=== PATIENT | female | born 1990 | race Caucasian/White ===

== ENCOUNTER 2020-12-10 13:00 | Outpatient (CLI) | payer MEDICAID, SELFPAY ==
[2020-12-10 13:13] VITALS: PULSE 88; O2SAT 100
[2020-12-10 13:17] VITALS: BP 132/92; PULSE 99
[2020-12-10 13:18] VITALS: PULSE 87; O2SAT 98
[2020-12-10 13:27] VITALS: RESP 15; TEMP 36.7; BMI 36.1
[2020-12-10 13:34] VITALS: BP 133/83; PULSE 94
== END 2020-12-10 13:42 | disposition home or self-care (01) ==
LOC: OPOB 13:02 → OBGYN 13:07
PROVIDERS: PCP Family Medicine; Visit Provider Family Medicine
DX: O24.419 Gestational diabetes mellitus in pregnancy, unspecified control (principal); Z3A.00 Weeks of gestation of pregnancy not specified
CPT/HCPCS: 59025

== ENCOUNTER 2020-12-13 15:57 | Outpatient (CLI) | payer MEDICAID, SELFPAY ==
[2020-12-13 16:26] VITALS: BP 125/62; PULSE 106; TEMP 36.6
[2020-12-13 16:41] VITALS: BP 119/77; PULSE 90
[2020-12-13 16:43] VITALS: RESP 16
[2020-12-13 16:49] VITALS: BMI 36.9
[2020-12-13 16:54] VITALS: BP 119/77; PULSE 90; RESP 16; TEMP 36.6
== END 2020-12-13 20:46 | disposition home or self-care (01) ==
LOC: OPOB 16:00 → OBGYN 16:02
PROVIDERS: PCP Family Medicine; Visit Provider Family Medicine
DX: O24.419 Gestational diabetes mellitus in pregnancy, unspecified control (principal); Z3A.00 Weeks of gestation of pregnancy not specified
CPT/HCPCS: 59025

== ENCOUNTER 2020-12-17 14:50 | Outpatient (CLI) | payer MEDICAID, SELFPAY ==
[2020-12-17 15:00] VITALS: RESP 20
[2020-12-17 15:04] VITALS: BP 124/78; PULSE 85; TEMP 36.6
[2020-12-17 15:14] VITALS: BMI 36.8
[2020-12-17 15:19] VITALS: BP 129/86; PULSE 90
[2020-12-17 15:35] VITALS: BP 129/82; PULSE 92
[2020-12-17 15:50] VITALS: BP 129/88; PULSE 96
== END 2020-12-17 16:00 | disposition home or self-care (01) ==
LOC: OPOB 14:55 → OBGYN 14:58
PROVIDERS: PCP Family Medicine; Visit Provider Family Medicine
DX: O24.419 Gestational diabetes mellitus in pregnancy, unspecified control (principal); Z3A.00 Weeks of gestation of pregnancy not specified
CPT/HCPCS: 59025; 99211

== ENCOUNTER 2020-12-19 07:20 | Inpatient (IN) | payer BC, MEDICAID, SELFPAY ==
[2020-12-19] VITALS (88 sets, daily range): BP systolic 104–144; BP diastolic 57–87; PULSE 63–125; RESP 16–18; TEMP 36.1–36.7; O2SAT 91–100; BMI 36.9
[2020-12-19] MEDS: ampicillin 2,000 MG in sodium chloride 0.9% (plus) 50 ML 100 MG IV (08:03)
[2020-12-19] MEDS: dextrose 5%-lactated ringers 1,000 ML 125 ML IV ×2 (08:03→17:44)
[2020-12-19] MEDS: oxytocin 30 UNIT/500 ML BAG IV (08:15)
[2020-12-19 08:46] LABS: Basophils % 0.3 %; Eosinophils # 0.2 10^3/uL (0.0-0.8); Eosinophils % 1.7 %; Hematocrit 34.3 % (37.0-47.0); Lymphocytes # 1.6 10^3/uL (0.8-4.8); Lymphocytes % 17.9 %; Mean Corpuscular HGB Conc 32.1 g/dL (30.0-36.0); Mean Corpuscular Hemoglobin 27.2 pg (28.0-34.0); Mean Corpuscular Volume 84.7 fL (81-99); Mean Platelet Volume 12.5 fL (7.4-10.4); Monocytes # 0.5 10^3/uL (0.2-0.9); Monocytes % 5.9 %; Neutrophils # 6.36 10^3/uL (1.8-7.7); Neutrophils % 73.1 %; Nucleated Red Blood Cells % 0 %; Platelet Count 168 10^3/cmm (130-400); Red Blood Count 4.05 10^6/uL (4.1-5.3); Red Cell Distribution Width 15.9 % (12.1-15.1); White Blood Count 8.7 10^3/uL (4.0-10.0)
[2020-12-19 09:11] LABS: Glucose Point of Care 131 mg/dL (70-110)
[2020-12-19] MEDS: ampicillin 1,000 MG in sodium chloride 0.9% (plus) 50 ML 100 MG IV ×2 (12:31→16:11)
[2020-12-19] MEDS: fentaNYL 50 mcg/mL INJ 2mL IV (14:53)
[2020-12-19] MEDS: lactated ringers 1,000 ML 999 ML IV ×2 (15:02→16:08)
--- NOTE | 2020-12-19 16:23 | P.ANESASSM_ITS ---
Pre-Anesthetic Assessment Pre-Anesthetic Assessment: Height/Weight: Height 1.73 m Weight 110.223 kg Temp Pulse Resp BP Pulse Ox 97.5 F L 68 17 117/74 100 12/19/20 13:59 12/19/20 16:19 12/19/20 14:53 12/19/20 16:19 12/19/20 16:19 Was Beta Constantin taken within 24 hours: N/A Social: Social History: No alcohol and No tobacco Exam: Pre-Anes Outpt Exam: alert, oriented x 3, clear to auscultation bilaterally and regular rate & rhythm Airway: Submandibular: WNL Cervical ROM: WNL MP: 2 Dentition: Full Pulmonary: Pulmonary: None reported CV/HEM: CV/HEM: None reported : : None reported Hepatic: Hepatic: None reported GI: GI: GERD Metabolic: Metabolic: DM Musc/skel: Musc/skel: None reported Neuropsych: Neuropsych: None reported Anesthetic Plan: ASA status: 2 Anesthesia: Regional (specify below) (Labor Epidural) Risk of > 500 ml blood loss (7ml/kg in children): No Meds/Allergies Current Medications: Current Medications Generic Name Dose Route Start Last Admin Trade Name Freq PRN Reason Stop Dose Admin Fentanyl 25 - 100 mcg 12/19/20 07:24 12/19/20 14:53 Fentanyl 50 Mcg/ Ml Inj 2ml IV 25 mcg Q1H PRN Administration SEVERE PAIN Ampicillin Sodium 1,000 mg/ 50 mls @ 100 mls/ hr 12/19/20 11:26 12/19/20 16:11 Sodium Chloride IV 100 mls/hr Q4H AUSTYN Administration Protocol Dextrose/Lactated Ringer's 1,000 mls @ 125 m ls/hr 12/19/20 07:30 12/19/20 15:03 Dextrose 5%-Lact ated Ringers IV Infused .Q8H AUSTYN Infusion Oxytocin 30 unit in 500 ml s @ 2 mls/hr 12/19/20 08:00 12/19/20 12:00 Pitocin IV 20 milliunit/min .Q24H AUSTYN 20 mls/hr Titration Protocol 2 MILLIUNIT/MIN Ropivacaine 200 mg in 100 mls @ 13 mls/hr 12/19/20 15:00 12/19/20 16:12 Naropin Premix EPIDURAL 13 mls/hr .Q7H42M AUSTYN Administration Lactated Ringer's 1,000 mls @ 999 m ls/hr 12/19/20 14:56 12/19/20 16:08 Lactated Ringers IV 999 mls/hr .Q1H1M PRN Administration See label comment s PFSH Anesthesia Female Reproductive History: : 2 Data Anesthesia CBC & Chem 7: 12/19/20 07:45 Other Labs: Laboratory Results - last 48 hr 12/19/20 12/19/20 07:45 09:06 WBC 8.7 RBC 4.05 L Hgb 11.0 L Hct 34.3 L MCV 84.7 MCH 27.2 L MCHC 32.1 RDW 15.9 H Plt Count 168 MPV 12.5 H Neut % (Auto) 73.1 Lymph % (Auto) 17.9 [place] % (Auto) 5.9 Eos % (Auto) 1.7 Baso % (Auto) 0.3 Neut # (Auto) 6.36 Lymph # (Auto) 1.6 [place] # (Auto) 0.5 Eos # (Auto) 0.2 Baso # (Auto) 0.0 Nucleated RBC % (auto) 0 Nucleated RBCs # 0.0 POC Glucose 131 H Cardiac Studies: No Data to Display
--- NOTE | 2020-12-19 16:24 | ANES.PROC ---
Anesthesia Procedures Procedure/Date: 12/19/20 Epidural: Consent: requested by attending/covering physician, from patient, risks and benefits reviewed and patient agrees to proceed Lumbar Level: L3-L4 Epidural position: sitting Epidural procedure: sterile prep of area, 1% lidocaine to numb the area, 18 g needle, negative for paresthesia passed, 1.5% xylocaine 1:200k epi, placed PCEA, no systemic response, sterile dressing applied and 0.2% Ropiavacaine @ mls/hr (13) Additional Comments: LEXIS at 5cm, cath at 10cm, 5mls of 2% lido bolused through needle at loss.
[2020-12-19] MEDS: miSOPROStol 200 mcg Tablet 800 MCG PR (20:35)
--- NOTE | 2020-12-19 20:51 | PM.DELIVERY ---
Delivery Note: Date of delivery: December 19, 2020 Pre-Delivery Course: The patient had routine care at [facility]. She was diagnosed with gestational diabetes mellitus that was initially diet controlled but in the last 2 weeks of was initiated on Metformin. There were no other complications during the Delivery: This is a 30-year-old G2, P1 admitted at 39 weeks gestation for induction secondary to Metformin controlled gestational diabetes mellitus. The patient cervix was very favorable and she was started on Pitocin. She was known to be GBS positive and was also started on ampicillin protocol. She received multiple doses of ampicillin prior to delivery. When she was 6 cm dilated she had artificial rupture of membranes with a copious amount of clear fluid. She had a normal spontaneous vaginal delivery of a viable female weight 8 pounds 0 ounces, 3640 g over a midline episiotomy. The episiotomy was performed because mother had a difficult time pushing past a tight band of tissue. After delivery the was suctioned and placed on the mother's chest. The cord was clamped and cut. The placenta was delivered grossly intact and normal to inspection. There was a second-degree perineal laceration that was sutured using 3-0 chromic. Mother had a brisk amount of uterine bleeding despite fundal firmness. She was given 800 mcg of Cytotec rectally. Estimated blood loss 400 mL. Mother and were doing well after delivery. A&P Assessment and plan (1) Normal spontaneous vaginal delivery: Routine care Status: Acute (2) Gestational diabetes mellitus (GDM): The patient was well controlled on Metformin. There will be no need to monitor sugars. Status: Acute Coding Level of Care Code Acute Hose Handler for Chg Fwd Diagnoses Normal spontaneous vaginal delivery O80 Gestational diabetes mellitus (GDM) O24.419
[2020-12-19] MEDS: oxytocin 30 UNIT/500 ML BAG 60 UNIT IV (21:56)
[2020-12-19] MEDS: benzocaine-menthol 78 gm Canister 1 SPRAY TOPICAL (23:06)
[2020-12-19] MEDS: amitriptyline 25 mg Tablet PO (23:07)
[2020-12-20] VITALS (12 sets, daily range): BP systolic 106–134; BP diastolic 57–78; PULSE 79–90; RESP 16; TEMP 36.2–37.4
[2020-12-20] MEDS: pantoprazole DR 40 mg Tablet PO (09:12)
[2020-12-20] MEDS: docusate sodium 100 mg Capsule PO ×2 (09:13→17:34)
[2020-12-20] MEDS: prenatal vitamin Capsule 1 CAP PO (09:13)
[2020-12-20] MEDS: ibuprofen 800 mg tablet PO ×3 (09:13→21:39)
--- NOTE | 2020-12-20 12:26 | P.PN_ITS ---
PRINCIPAL QUALITY ENGINEER Subjective Subjective: Interval history: day #1. Doing well. Vaginal bleeding is about average. She is tolerating a regular diet and ambulating. Labor: Station: 0 Amniotic Membrane Status: Ruptured Monitor Mode: External Contraction Pattern: Regular Status: Category I Vitals/I&O/Wt Last Vital Signs Temp 97.2 F L 12/20/20 10:04 Pulse 86 12/20/20 10:04 Resp 16 12/20/20 00:00 BP 106/57 12/20/20 10:04 Pulse Ox 100 12/19/20 17:14 12/19/20 12/20/20 12/20/20 22:59 06:59 14:59 Intake Total 2589.833 / 3322.333 Output Total 100 / 100 300 / 400 Balance 2489.833 / 3222.333 -300 / 2922.333 Weight last 48 hrs Weight 243 lb Physical Exam HENMT: COMMON NORMALS: normocephalic and atraumatic HEAD & SCALP: normocephalic and atraumatic FACE & SINUS: normal facial exam Chest: COMMONS NORMALS: normal inspection of the chest Resp: COMMON NORMALS: normal respiratory effort and clear to auscultation bilaterally AUSCULTATION: clear to auscultation bilaterally Cardio: COMMON NORMALS: regular rate and regular rhythm RATE: regular rate RHYTHM: regular rhythm GI: COMMON NORMALS: Soft to palpation (Fundus firm U- 2), non-tender and No hepatosplenomegaly present PALPATION: Yes Soft to palpation (Fundus firm U- 2) and Yes No hepatosplenomegaly present Extremity: COMMON NORMALS: no calf tenderness GENERAL: Yes edema (Nonpitting) Urinary Catheter Management^: Dooley: Cath Placed During This Visit: yes Reason for Continuing Indwelling Catheter: Acute Urinary Retention or Obstruction Urinary Catheter Date of Insertion: 12/19/20 Urinary Catheter Time of Insertion: 16:43 Data : 12/19/20 07:45 A&P Assessment and plan (1) Normal spontaneous vaginal delivery: Routine care. We will keep inpatient with the infant until at least 48 hours of age due to group B strep positive status. Status: Acute (2) Gestational diabetes mellitus (GDM): Status: Acute Attestations Medical Necessity Statement*: Routine care Coding Level of Care Code Acute Regional Trainer for Chg Fwd Diagnoses Normal spontaneous vaginal delivery O80 Gestational diabetes mellitus (GDM) O24.419
[2020-12-20 12:54] LABS: Mean Corpuscular HGB Conc 31.3 g/dL (30.0-36.0); Mean Corpuscular Hemoglobin 26.6 pg (28.0-34.0); Mean Corpuscular Volume 85.1 fL (81-99); Mean Platelet Volume 13.1 fL (7.4-10.4); Platelet Count 165 10^3/cmm (130-400); Red Blood Count 3.76 10^6/uL (4.1-5.3); White Blood Count 10.9 10^3/uL (4.0-10.0)
[2020-12-20] MEDS: amitriptyline 25 mg Tablet PO (21:40)
[2020-12-21] VITALS (9 sets, daily range): BP systolic 110–130; BP diastolic 52–66; PULSE 68–81; RESP 16–18; TEMP 36.2–36.6; O2SAT 98–99
[2020-12-21] MEDS: prenatal vitamin Capsule 1 CAP PO (09:50)
[2020-12-21] MEDS: ibuprofen 800 mg tablet PO ×2 (09:50→15:26)
[2020-12-21] MEDS: docusate sodium 100 mg Capsule PO ×2 (09:50→18:23)
[2020-12-21] MEDS: pantoprazole DR 40 mg Tablet PO (09:50)
--- NOTE | 2020-12-21 12:32 | PM.OBGYDC ---
Discharge Providers BOX BLANK MACHINE FEEDER Date of Admission: 12/19/20 07:20 Date of Discharge: 12/21/20 Attending Provider at Admission: Tracy Callaway MD Attending Provider at Discharge: Tracy Callaway MD Primary Care Provider: Tracy Callaway MD Diagnoses at Discharge Discharge Diagnosis (1) Normal spontaneous vaginal delivery: Status: Acute (2) Gestational diabetes mellitus (GDM): Status: Acute Reason for Visit Reason for Visit: IUP, Gestational DM, Induction of labor Hospital Course Hospital Course This is a 30-year-old G2 now P2 who was admitted for induction secondary to gestational diabetes mellitus at 39 weeks gestation. She had a normal spontaneous vaginal delivery of a viable female infant with Apgars of 8 and 9. Mother and infant did well after delivery. On day #2 she was ambulating, tolerating a regular diet, had essentially no pain and decreased vaginal bleeding. Information Peripartum Data: Delivery Method: Vaginal Physical Exam Const: COMMON NORMALS: no acute distress Resp: COMMON NORMALS: normal respiratory effort and No retractions GI: COMMON NORMALS: Soft to palpation, non-tender, No hepatosplenomegaly present and no masses PALPATION: Yes Soft to palpation and Yes No hepatosplenomegaly present Extremity: COMMON NORMALS: no pedal edema GENERAL: No calf tenderness Urinary Catheter Management^: Dooley: Cath Placed During This Visit: yes Reason for Continuing Indwelling Catheter: Acute Urinary Retention or Obstruction Urinary Catheter Date of Insertion: 12/19/20 Urinary Catheter Time of Insertion: 16:43 Discharge Data Data Completed and Pending: Labs from last 24 hours 12/20/20 12:10 WBC 10.9 H RBC 3.76 L Hgb 10.0 L Hct 32.0 L MCV 85.1 MCH 26.6 L MCHC 31.3 RDW 16.0 H Plt Count 165 MPV 13.1 H Vitals: Last Vital Signs Temp 97.8 F 12/21/20 09:55 Pulse 80 12/21/20 09:53 Resp 16 12/21/20 09:55 BP 130/58 12/21/20 09:53 Pulse Ox 99 12/21/20 09:55 Discharge Plan Discharge Patient Disposition: Home Condition: Stable Prescriptions: Continued amitriptyline 10 mg Tablet 25 mg PO BEDTIME RF: 0 omeprazole 20 mg Tablet,Delayed Release (Dr/Ec) 20 mg PO DAILY RF: 0 1 mg Tablet 1 tab PO DAILY RF: 0 Discontinued metformin 500 mg Tablet 500 mg PO DAILY RF: 0 Discharge Orders: Discharge Order (Routine); Ordered 12/21/20 Ordered By: Tracy Callaway Discharge Diet: Usual diet Discharge Activity: Limit activity as instructed Discharge Attestations BOX BLANK MACHINE FEEDER Time Spent in Discharge Care*: less than 30 min Coding Level of Care Code Acute Dry Cleaner Apprentice for Chg Fwd Exam Expanded Problem Focused Diagnoses Normal spontaneous vaginal delivery O80 Gestational diabetes mellitus (GDM) O24.419
== END 2020-12-21 21:15 | disposition home or self-care (01) | DRG 807 ==
PROVIDERS: Admitting Provider Family Medicine; PCP Family Medicine; Visit Provider Family Medicine
DX: O24.425 Gestational diabetes mellitus in childbirth, controlled by oral hypoglycemic drugs (principal); Z37.0 Single live birth; Z3A.39 39 weeks gestation of pregnancy; O99.824 Streptococcus B carrier state complicating childbirth; O70.1 Second degree perineal laceration during delivery
CPT/HCPCS: 36415; 36416; 51702; 59409; 82962; 85025; 85027; J0290; J2795; J3010

== ENCOUNTER 2021-11-06 00:49 | Inpatient (IN) | payer BC, MEDICAID, SELFPAY ==
[2021-11-05 23:50] VITALS: BP 113/77; PULSE 85
[2021-11-05 23:54] VITALS: TEMP 36.3
[2021-11-06] VITALS (46 sets, daily range): BP systolic 98–173; BP diastolic 55–89; PULSE 64–155; TEMP 36.2–36.8; O2SAT 80–100; BMI 39.0
[2021-11-06 01:25] LABS: Basophils % 0.2 %; Eosinophils # 0.1 10^3/uL (0.0-0.8); Eosinophils % 1.2 %; Hematocrit 36.5 % (37.0-47.0); Hemoglobin 11.9 g/dL (11.5-15.3); Lymphocytes % 18.1 %; Mean Corpuscular HGB Conc 32.6 g/dL (30.0-36.0); Mean Corpuscular Hemoglobin 26.4 pg (28.0-34.0); Mean Corpuscular Volume 80.9 fl (81-99); Monocytes # 0.9 10^3/uL (0.2-0.9); Monocytes % 7.7 %; Neutrophils # 8.08 10^3/uL (1.8-7.7); Neutrophils % 72.3 %; Nucleated Red Blood Cells % 0 %; Platelet Count 154 10^3/cmm (130-400); Red Blood Count 4.51 10^6/uL (4.1-5.3); Red Cell Distribution Width 16.3 % (12.1-15.1); White Blood Count 11.2 10^3/uL (4.0-10.0)
--- NOTE | 2021-11-06 02:10 | ANES.PREANE2 ---
Pre-Anesthetic Assessment Pre-Anesthetic Assessment: Height/Weight: Height 1.73 m Temp Pulse BP Pulse Ox 97.3 F L 96 129/79 92 11/05/21 23:54 11/06/21 02:09 11/06/21 02:03 11/06/21 02:09 Preop Diagnosis: labor Proposed Procedure: epidural Was Beta Constantin taken within 24 hours: N/A Was Clonidine taken within 24 hours: N/A Last Intake: 18:00 Social: Social History: No alcohol and No tobacco Exam: Pre-Anes Outpt Exam: alert, oriented x 3, clear to auscultation bilaterally and regular rate & rhythm Airway: Submandibular: WNL Cervical ROM: WNL MP: 2 Dentition: Full Pulmonary: Pulmonary: None reported CV/HEM: CV/HEM: None reported : : None reported Hepatic: Hepatic: None reported GI: GI: GERD Metabolic: Metabolic: DM Musc/skel: Musc/skel: None reported Neuropsych: Neuropsych: ALVAREZ Anesthetic Plan: ASA status: 2 Anesthesia: Regional (specify below) (epidural) Risk of > 500 ml blood loss (7ml/kg in children): No Data Anesthesia CBC & Chem 7: 11/06/21 01:10 Other Labs: Laboratory Results - last 48 hr 11/06/21 01:10 WBC 11.2 H RBC 4.51 Hgb 11.9 Hct 36.5 L MCV 80.9 L MCH 26.4 L MCHC 32.6 RDW 16.3 H Plt Count 154 MPV 13.0 H Neut % (Auto) 72.3 Lymph % (Auto) 18.1 [place] % (Auto) 7.7 Eos % (Auto) 1.2 Baso % (Auto) 0.2 Neut # (Auto) 8.08 H Lymph # (Auto) 2.0 [place] # (Auto) 0.9 Eos # (Auto) 0.1 Baso # (Auto) 0.0 Nucleated RBC % (auto) 0 Nucleated RBCs # 0.0 Cardiac Studies: No Data to Display
--- NOTE | 2021-11-06 02:27 | PM.OPHPUD ---
Labor & Delivery H&P Update Date of Procedure: November 06, 2021 Date H&P Performed: 11/05/21 H&P update information: I have reviewed H&P completed within last 30 days, I have examined patient prior to procedure and Changes to prior documentation as noted here Changes to previous documentation: The patient is noted to be 8 cm and 90% effaced. Admission Diagnosis: Other information: The patient is a 3 para 2-0-0-2 at 37 weeks estimated gestational age according to her LMP and 20-week ultrasound. The patient has a a that is notable for having gestational diabetes that has been controlled with diet and then later with Metformin. Her blood sugars have ranged from 90s to 130s. Her blood type is a positive. She is antibody negative. Her HIV GC, chlamydia, RPR, and hepatitis C and b panel are negative. Her initial urine culture demonstrated E. coli. Which was treated. Otherwise, she had no notable findings during her . Related Problem List Diagnoses (1) 37 weeks gestation of : (2) Gestational diabetes mellitus (GDM): (3) Active labor:
--- NOTE | 2021-11-06 02:35 | ANES.PROC ---
Anesthesia Procedures Procedure/Date: 11/06/21 Epidural: Time Out Performed: Yes Consents Signed: Procedure Consent Consent: requested by attending/covering physician, from patient, risks and benefits reviewed and patient agrees to proceed Lumbar Level: L3-L4 Epidural position: sitting Epidural procedure: sterile prep of area (betadine), 1% lidocaine to numb the area (3ml), 18 g needle, neg for paresthesia, test dose given, 1.5% xylocaine 1:200k epi (3/2ml), 0.2% Ropivacaine bolus ml (5ml), placed PCEA, no systemic response, sterile dressing applied, L.U.D. no apparent complications and 0.2% Ropiavacaine @ mls/hr (13ml/hr)
--- NOTE | 2021-11-06 03:04 | P.PCNOB_ITS ---
Delivery Note: Date of delivery: November 06, 2021 Pre-delivery diagnoses: 1. 31 3 para 2-0-0-2 at 37 weeks estimated gestational age presenting in active labor Post-delivery diagnoses: Status post spontaneous fashion. Procedure: Spontaneous vaginal delivery. Op report anesthesia: Epidural Delivering Physician: Pb Rios Estimated blood loss (mL): 400 Pre-Delivery Course: The patient arrived at the hospital in active labor. Her membranes were intact. She originally was found to be 3 cm dilated. She gradually progressed to complete without difficulty. An epidural was placed just before her delivery. Heart tones were category 1 throughout almost all of her labor. Delivery: DELIVERY: The patient progressed to complete without difficulty. She delivered a male with a weight of 7 pounds 10 ounces with Apgars of 8, 9. The baby was delivered from the SUMIT position. and placed on the mother's abdomen. The cord was then clamped and cut 1 minute after delivery. There was no nuchal cord. There was no meconium. The placenta and 3 vessel cord were delivered intact shortly thereafter. The perineum and vaginal vault were carefully examined. A second-degree posterior midline laceration was noted. There were also 2 superficial anterior vaginal wall lacerations noted bilaterally. The posterior laceration was reapproximated using 3-0 Vicryl in the usual fashion. Both the mother and the baby were in stable condition. Post-Delivery Status: Good A&P Assessment and plan (1) 37 weeks gestation of : Status: Acute (2) Gestational diabetes mellitus (GDM): Status: Acute (3) Active labor: Status: Acute Coding Level of Care Code Acute Attorney Law Clerk for Chg Fwd Diagnoses 37 weeks gestation of Z3A.37 Gestational diabetes mellitus (GDM) O24.419 Active labor
[2021-11-06 03:46] LABS: Glucose Point of Care 120 mg/dL (70-110)
[2021-11-06 07:40] LABS: Glucose Point of Care 126 mg/dL (70-110)
--- NOTE | 2021-11-06 08:23 | ANE.PACU2 ---
Inpatient post-anesthesia follow up: Airway intact: Yes Vital signs: Temperature 98.2 F Pulse Rate 74 Respiratory Rate Blood Pressure 115/73 Pulse Oximetry 85 Oxygen Delivery Me thod Room Air Oxygen Flow Rate Fraction of Inspir ed Oxygen Hydration adequate: Yes Nausea and vomiting: No Pain level: 2 Mental status: Baseline
[2021-11-06] MEDS: docusate sodium 100 mg Capsule PO (10:09)
[2021-11-06] MEDS: prenatal vitamin Capsule 1 CAP PO (10:09)
[2021-11-06] MEDS: ibuprofen 800 mg tablet PO ×3 (10:09→21:11)
[2021-11-06 20:15] LABS: Hematocrit 30.5 % (37.0-47.0); Hemoglobin 9.7 g/dL (11.5-15.3); Mean Corpuscular HGB Conc 31.8 g/dL (30.0-36.0); Mean Corpuscular Hemoglobin 25.8 pg (28.0-34.0); Mean Corpuscular Volume 81.1 fl (81-99); Mean Platelet Volume 13.3 fL (7.4-10.4); Platelet Count 149 10^3/cmm (130-400); Red Blood Count 3.76 10^6/uL (4.1-5.3); Red Cell Distribution Width 16.2 % (12.1-15.1); White Blood Count 10.1 10^3/uL (4.0-10.0)
[2021-11-06 23:18] LABS: Glucose Point of Care 111 mg/dL (70-110)
[2021-11-07 03:58] VITALS: BP 116/57; PULSE 80; TEMP 36.9
[2021-11-07 06:54] LABS: Glucose Point of Care 81 mg/dL (70-110)
--- NOTE | 2021-11-07 07:28 | PM.OBGYDC ---
Discharge Providers DRIER TENDER NAPHTHALENE Date of Admission: 11/06/21 00:49 Date of Discharge: 11/07/21 Attending Provider at Admission: Pb Rios MD Attending Provider at Discharge: Pb Rios MD Primary Care Provider: Tracy Callaway MD Diagnoses at Discharge Discharge Diagnosis (1) 37 weeks gestation of : Status: Acute (2) Gestational diabetes mellitus (GDM): Status: Acute (3) Active labor: Status: Acute Reason for Visit Reason for Visit: CONTRACTIONS Information Peripartum Data: Delivery Method: Vaginal Physical Exam Narrative: EXAM NARRATIVE: Patient is doing very well and working well with . She has had only mild lochia with no significant clots or heavy bleeding. Const: COMMON NORMALS: no acute distress, healthy appearing and well nourished HENMT: COMMON NORMALS: moist oral mucous membranes Resp: COMMON NORMALS: normal respiratory effort, No retractions and clear to auscultation bilaterally AUSCULTATION: clear to auscultation bilaterally Cardio: COMMON NORMALS: regular rate, regular rhythm and No murmurs present (Cardio) RATE: regular rate RHYTHM: regular rhythm GI: COMMON NORMALS: Normal to inspection, nondistended, normoactive bowel sounds present, Soft to palpation and non-tender (Fundus is firm and well below the umbilicus.) PALPATION: Yes Soft to palpation Extremity: COMMON NORMALS: normal to inspection, full ROM and no pedal edema Neuro: COMMON NORMALS: no focal motor deficits and no sensory deficits noted Psych: COMMON NORMALS: mental status grossly normal, cooperative and normal affect Skin: COMMON NORMALS: no rashes or lesions noted GENERAL SKIN EXAM: no rashes or lesions noted Discharge Data Data Completed and Pending: Labs from last 24 hours 11/07/21 11/06/21 11/06/21 06:49 23:05 19:45 WBC 10.1 H RBC 3.76 L Hgb 9.7 L Hct 30.5 L MCV 81.1 MCH 25.8 L MCHC 31.8 RDW 16.2 H Plt Count 149 MPV 13.3 H POC Glucose 81 111 H 11/06/21 07:36 WBC RBC Hgb Hct MCV MCH MCHC RDW Plt Count MPV POC Glucose 126 H Vitals: Last Vital Signs Temp 98.4 F 11/07/21 03:58 Pulse 80 11/07/21 03:58 BP 116/57 11/07/21 03:58 Pulse Ox 85 L 11/06/21 02:38 Discharge Plan Discharge Patient Disposition: Home Condition: Stable Prescriptions: New ibuprofen 800 mg Tablet 800 mg PO TID Qty: 60 RF: 1 docusate sodium 100 mg Capsule 100 mg PO BID Qty: 60 RF: 0 Continued amitriptyline 10 mg Tablet 25 mg PO BEDTIME RF: 0 omeprazole 20 mg Tablet,Delayed Release (Dr/Ec) 20 mg PO DAILY RF: 0 [id number] 1 mg Tablet 1 tab PO DAILY RF: 0 Discharge Orders: Discharge Order (Routine); Ordered 11/07/21 Ordered By: Hermelindo Hutchinson Referrals: Pb Rios MD [Physician] - 6 Weeks Discharge Diet: Usual diet Discharge Activity: Resume usual activity Patient Instructions: Opioid Safety Discharge Attestations DRIER TENDER NAPHTHALENE Time Spent in Discharge Care*: less than 30 min Specific Discharge Activities: Specific discharge activities: educating patient, documenting/other paperwork and evaluating patient/reviewing data Coding Level of Care Code Acute Needle Polisher for Chg Fwd Diagnoses 37 weeks gestation of Z3A.37 Gestational diabetes mellitus (GDM) O24.419 Active labor
[2021-11-07 09:33] VITALS: BP 134/55; PULSE 86
[2021-11-07 09:38] VITALS: RESP 15; TEMP 36.6
[2021-11-07] MEDS: docusate sodium 100 mg Capsule PO (09:39)
[2021-11-07] MEDS: prenatal vitamin Capsule 1 CAP PO (09:39)
[2021-11-07] MEDS: ibuprofen 800 mg tablet PO ×2 (09:39→15:44)
[2021-11-07 15:44] VITALS: BP 112/67; PULSE 78; RESP 16; TEMP 36.7
[2021-11-07 16:00] VITALS: BP 112/67; PULSE 78; RESP 16; TEMP 36.7
== END 2021-11-07 16:00 | disposition home or self-care (01) | DRG 807 ==
PROVIDERS: Admitting Provider Family Medicine; PCP Family Medicine; Visit Provider Family Medicine
DX: O24.425 Gestational diabetes mellitus in childbirth, controlled by oral hypoglycemic drugs (principal); Z37.0 Single live birth; O70.1 Second degree perineal laceration during delivery; Z3A.37 37 weeks gestation of pregnancy
CPT/HCPCS: 12345; 36415; 36416; 59025; 59409; 82962; 85025; 85027; 99211